=== PATIENT | female | born 1960 | race Hispanic/Latino ===

== ENCOUNTER 2018-06-29 11:43 | Outpatient (CLI) | payer OTHER ==
--- NOTE | 2018-06-29 12:48 | RAD ---
PA AND LATERAL CHEST: History: Chest congestion. FINDINGS: The heart size is normal. The aorta is tortuous. The lungs are well expanded without focal areas of c onsolidation, pneumothoraces or pleural effusions. No acute osseous abnormalities are seen. IMPRESSION: No radiographic evidence of acute cardiopulmonary process. POS: [facility]
== END 2018-06-29 11:44 | disposition home or self-care (01) ==
LOC: MADRAD 11:43
PROVIDERS: ATTEND Physician Assistant
DX: R09.89 Other specified symptoms and signs involving the circulatory and respiratory systems (principal)
CPT/HCPCS: 71046

== ENCOUNTER 2020-08-08 12:04 | Outpatient (CLI) | payer OTHER ==
--- NOTE | 2020-08-08 12:26 | RAD ---
EXAM: Chest PA and lateral: HISTORY: Bronchitis COMPARISON: 06/29/2018 FINDINGS: Lung ceron are clear. Vascular markings are normal. Heart and mediastinum appear unremarkable. Osseous structures are unremarkable. IMPRESSION: Unremarkable chest
== END 2020-08-08 12:05 | disposition home or self-care (01) ==
LOC: MADRAD 12:04
PROVIDERS: ATTEND Physician Assistant
DX: J40 Bronchitis, not specified as acute or chronic (principal)
CPT/HCPCS: 71046